=== PATIENT | male | born 1995 | race Two or more races ===

== ENCOUNTER 2017-06-24 01:24 | Emergency (ER) | payer OTHER ==
[2017-06-24] MEDS ORDERED: ONDANSETRON 4 MG/2 ML VIAL ONE ×2 (01:54→03:12)
[2017-06-24] MEDS ORDERED: NS 1,000 ML IV ONE ×3 (01:56→04:31)
[2017-06-24 02:09] LABS: PLATELET COUNT 299 10^3/uL (150-400)
[2017-06-24] MEDS ORDERED: ONDANSETRON 4 MG/2 ML VIAL IVP ONE ×2 (03:12→04:49)
--- NOTE | 2017-06-24 04:08 | EDPHY ---
H & P Stated Complaint: ABD PAIN/DIARRHEA X 1/EMESIS X 2 Time Seen by Provider: 06/24/17 01:54 HPI/ROS: HPI The patient presents with nausea, vomiting, abdominal pain, diarrhea. Symptoms began about 3 hr ago. He has had about 3 episodes of nonbloody nonbilious emesis. This is followed by sharp right lower quadrant abdominal pain which has been intermittent entered in severity. The pain is relieved upon standing. He has no history of similar. He has had 1 episode of loose stool. He has not had a fever.. REVIEW OF SYSTEMS Constitutional: No fever, no chills. Eyes: No discharge. ENT: No sore throat. Cardiovascular: No chest pain, no palpitations. Respiratory: No cough, no shortness of breath. Gastrointestinal: See HPI Genitourinary: No hematuria. Musculoskeletal: No back pain. Skin: No rashes. Neurological: No headache. PMHx: Healthy PHYSICAL General Appearance: Alert, no distress Eyes: Pupils equal and round no pallor or injection ENT, Mouth: Mucous membranes moist Respiratory: There are no retractions, lungs are clear to auscultation Cardiovascular: Regular rate and rhythm Gastrointestinal: Abdomen is soft and non-tender, no masses, bowel sounds normal Neurological: A&O, moves all extremities Skin: Warm and dry, no rashes Musculoskeletal: Neck is supple non tender Extremities: symmetrical, full range of motion Psychiatric: Patient is oriented X 3, there is no agitation Source: Patient Exam Limitations: No limitations - Personal History Current Tetanus Diphtheria and Acellular Pertussis (TDAP): Yes Tetanus Vaccine Date: LESS THAN 10 YEARS - Medical/Surgical History Hx Asthma: No Hx Chronic Respiratory Disease: No Hx Diabetes: No Hx Cardiac Disease: No Hx Renal Disease: No Hx Cirrhosis: No Hx Alcoholism: No Hx HIV/AIDS: No Hx Splenectomy or Spleen Trauma: No Other PMH: DENIES - Social History Smoking Status: Never smoked Constitutional: Initial Vital Signs Temperature (C) 36.5 C 06/24/17 01:27 Heart Rate 117 H 06/24/17 01:27 Respiratory Rate 18 06/24/17 01:27 Blood Pressure 143/88 H 06/24/17 01:27 O2 Sat (%) 96 06/24/17 01:27 O2 Delivery Mode Room Air Allergies/Adverse Reactions: No Known Allergies Allergy (Unverified 06/24/17 01:26) Home Medications: Medication Instructions Recorded Ondansetron Odt [Zofran Odt 4 mg 4 mg PO Q4 PRN #10 tab 06/24/17 (*)] Medical Decision Making - Diagnostics Imaging Results: Ultrasound abdomen reveals normal appendix with no free fluid, discussed Dr. Payton of Radiology. Differential Diagnosis: This is a 21-year-old healthy male who presents with several hours of nausea, vomiting, diarrhea, abdominal pain. On exam, he is mildly tachycardic, otherwise well appearing. His abdominal exam is benign though he is complaining of right lower quadrant pain. Differential diagnosis includes appendicitis, viral gastroenteritis, toxin mediated enterocolitis been In the emergency department, basic labs were checked and did reveal a leukocytosis. Her labs were unremarkable. Right lower quadrant ultrasound was performed and demonstrated a normal appendix. I feel he is likely suffering from a viral gastroenteritis and I have explained this to him. He became more nauseated while the emergency department and vomited once. He was somewhat tachycardic and received more IV fluids and Zofran. This caused resolution of his symptoms and improvement in his heart rate. He will be discharged home with Zofran prescription. - Data Points Laboratory Results: Laboratory Results 06/24/17 01:43 06/24/17 01:43 06/24/17 06/24/17 06/24/17 04:23 01:43 01:43 WBC 14.88 10^3/uL H 10^3/uL (3.80-9.50) RBC 6.06 10^6/uL 10^6/uL (4.40-6.38) Hgb 19.4 g/dL H g/dL (13.7-17.5) Hct 53.2 % H % (40.0-51.0) MCV 87.8 fL fL (81.5-99.8) MCH 32.0 pg pg (27.9-34.1) MCHC 36.5 g/dL g/dL (32.4-36.7) RDW 12.0 % % (11.5-15.2) Plt Count 299 10^3/uL 10^3/uL (150-400) MPV 10.2 fL fL (8.7-11.7) Neut % (Auto) 88.0 % H % (39.3-74.2) Lymph % (Auto) 5.8 % L % (15.0-45.0) Davis % (Auto) 5.4 % % (4.5-13.0) Eos % (Auto) 0.1 % L % (0.6-7.6) Baso % (Auto) 0.4 % % (0.3-1.7) Nucleat RBC Rel Count 0.0 % % (0.0-0.2) Absolute Neuts (auto) 13.09 10^3/uL H 10^3/uL (1.70-6.50) Absolute Lymphs (auto) 0.87 10^3/uL L 10^3/uL (1.00-3.00) Absolute Monos (auto) 0.80 10^3/uL 10^3/uL (0.30-0.80) Absolute Eos (auto) 0.02 10^3/uL L 10^3/uL (0.03-0.40) Absolute Basos (auto) 0.06 10^3/uL 10^3/uL (0.02-0.10) Absolute Nucleated RBC 0.00 10^3/uL 10^3/uL (0-0.01) Immature Gran % 0.3 % % (0.0-1.1) Immature Gran # 0.04 10^3/uL 10^3/uL (0.00-0.10) Sodium 145 mEq/L H mEq/L (134-144) Potassium 3.6 mEq/L mEq/L (3.5-5.2) Chloride 103 mEq/L mEq/L (97-110) Carbon Dioxide 24 mEq/l mEq/l (22-31) Anion Gap 18 mEq/L H mEq/L (8-16) BUN 18 mg/dL mg/dL (7-23) Creatinine 0.9 mg/dL mg/dL (0.7-1.3) Estimated GFR > 60 Glucose 139 mg/dL H mg/dL (70-100) Calcium 10.3 mg/dL mg/dL (8.5-10.4) Total Bilirubin 0.7 mg/dL mg/dL (0.1-1.4) AST 20 IU/L IU/L (17-59) ALT 28 IU/L IU/L (21-72) Alkaline Phosphatase 87 IU/L IU/L (38-126) Total Protein 8.6 g/dL H g/dL (6.3-8.2) Albumin 5.2 g/dL H g/dL (3.5-5.0) Urine Color YELLOW Urine Appearance CLEAR Urine pH 5.0 (5.0-7.5) Ur Specific [place] 1.027 (1.002-1.030) Urine Protein NEGATIVE (NEGATIVE) Urine Ketones 1+ H (NEGATIVE) Urine Blood NEGATIVE (NEGATIVE) Urine Nitrate NEGATIVE (NEGATIVE) Urine Bilirubin NEGATIVE (NEGATIVE) Urine Urobilinogen NEGATIVE EU EU (0.2-1.0) Ur Leukocyte Esterase NEGATIVE (NEGATIVE) Urine Glucose NEGATIVE (NEGATIVE) Medications Given: Discontinued Medications Sodium Chloride (Ns) 1,000 mls @ 0 mls/hr IV ONCE ONE PRN Reason: Wide Open Stop: 06/24/17 01:57 Last Admin: 06/24/17 01:56 Dose: 1,000 mls Sodium Chloride (Ns) 1,000 mls @ 0 mls/hr IV ONCE ONE; Wide Open PRN Reason: Protocol Stop: 06/24/17 03:11 Last Admin: 06/24/17 03:11 Dose: 1,000 mls Sodium Chloride (Ns) 1,000 mls @ 0 mls/hr IV ONCE ONE PRN Reason: Wide Open Stop: 06/24/17 04:32 Last Admin: 06/24/17 04:31 Dose: 1,000 mls Ondansetron HCl (Zofran) 4 mg IVP EDNOW ONE Stop: 06/24/17 03:13 Last Admin: 06/24/17 03:14 Dose: 4 mg Ondansetron HCl (Zofran) 4 mg IVP EDNOW ONE Stop: 06/24/17 04:50 Last Admin: 06/24/17 04:50 Dose: 4 mg Ondansetron HCl (Zofran Odt 4 Mg Prepack#2) 1 btl TAKEHOME EDNOW ONE Stop: 06/24/17 05:29 Last Admin: 06/24/17 05:46 Dose: 1 btl Departure - Departure Disposition: Home, Routine, Self-Care Clinical Impression: Nausea & vomiting Condition: Good Instructions: Ondansetron (By mouth), Acute Nausea and Vomiting (ED) Additional Instructions: Please return to the emergency department if your worse in any way. Referrals: CLARE Goncalves,. [Clinic] - As per Instructions Prescriptions: Ondansetron Odt [Zofran Odt 4 mg (*)] 4 mg PO Q4 PRN #10 tab PRN Reason: Nausea/Vomiting, Can'T Take Po
[2017-06-24 04:26] VITALS: RESP 16
[2017-06-24 05:27] VITALS: PULSE 99
[2017-06-24] MEDS ORDERED: ONDANSETRON 4MG PREPACK#2 BTL TAKEHOME ONE (05:28)
[2017-06-24 05:50] VITALS: BP 100/67; TEMP 98.4; O2SAT 99
== END 2017-06-24 05:49 | disposition home or self-care (01) ==
DX: R11.2 Nausea with vomiting, unspecified (principal); E86.9 Volume depletion, unspecified
CPT/HCPCS: 96374; J2405